=== PATIENT | male | born 1995 | race American Indian/Alaskan Native ===

== ENCOUNTER 2017-07-01 10:04 | Emergency (ER) | payer OTHER ==
[2017-07-01 10:54] LABS: Basophils % (Auto) 1.3 % (0.0-1.8); Hematocrit 45.2 % (35.5-45.6); Hemoglobin 14.6 gm/dl (11.8-15.2); Mean Corpuscular HGB Conc 32 % (32-34); Mean Corpuscular Hemoglobin 31 pg (28-32); Mean Corpuscular Volume 94 fl (84-94); Platelet Count 213 K/mm3 (140-440); Red Blood Count 4.79 M/mm3 (3.65-5.03); Red Cell Distribution Width 12.9 % (13.2-15.2); White Blood Count 5.3 K/mm3 (4.5-11.0)
[2017-07-01 11:13] LABS: Alanine Aminotransferase 10 units/L (7-56); Albumin 4.6 g/dL (3.9-5); Alkaline Phosphatase 66 units/L (35-129); Anion Gap 13 mmol/L; BUN/Creatinine Ratio 21.25; Blood Urea Nitrogen 17 mg/dL (9-20); Calcium 9.2 mg/dL (8.4-10.2); Carbon Dioxide 30 mmol/L (22-30); Chloride 101.7 mmol/L (98-107); Glucose 95 mg/dL (75-100); Potassium 3.6 mmol/L (3.6-5.0); Sodium 141 mmol/L (137-145); Total Protein 6.9 g/dL (6.3-8.2)
[2017-07-01 12:35] LABS: Bacteria,Urine 1+ /HPF (Negative); Bilirubin,Urine NEG (Negative); Blood,Urine NEG (Negative); Ketones,Urine NEG (Negative); Leukocyte Esterase,Urine NEG (Negative); Mucus,Urine 2+ /HPF; Nitrite,Urine NEG (Negative); Protein,Urine <15 mg/dL mg/dL (Negative); Urobilinogen,Urine < 2.0 mg/dL (<2.0)
[2017-07-01 16:15] VITALS: BP 127/63
[2017-07-01] MEDS ORDERED: MOTRIN PO ONE (16:35)
[2017-07-01] MEDS ORDERED: TYLENOL PO ONE (16:35)
--- NOTE | 2017-07-01 16:47 | Emergency Department Report ---
ED General Adult HPI - General Chief complaint: Syncope Stated complaint: FAINTED PAIN IN LEFT HIP AND LEG Time Seen by Provider: 07/01/17 16:24 Source: patient Mode of arrival: Ambulatory Limitations: No Limitations - History of Present Illness Initial comments: He is a 22-year-old male no significant past medical history who presents with status post syncope. Patient was outside last night and after working from his job he got up and he felt lightheaded. He felt down on the left side of his body. He did not have any loss of consciousness. He is just complaining of left hip pain which is a 4 out of 10. It is an achy type of pain putting pressure on it makes it worse and rest makes it better. Pt states that he had no loss of consciousness. Patient also hit his head. Severity scale (0 -10): 2 - Related Data Previous Rx's Medication Instructions Recorded Last Taken Type Ibuprofen [Motrin 800 MG tab] 800 mg PO Q8HR PRN #30 tablet 12/31/15 Unknown Rx Acetaminophen [Acetaminophen TAB] 1,000 mg PO ONCE PRN #60 tablet 07/01/17 Unknown Rx Ibuprofen [Motrin 400 MG tab] 400 mg PO ONCE PRN #30 tablet 07/01/17 Unknown Rx Allergies Allergy/AdvReac Type Severity Reaction Status Date / Time Penicillins AdvReac Unknown Verified 12/31/15 00:29 ED Review of Systems ROS: Stated complaint: FAINTED PAIN IN LEFT HIP AND LEG Other details as noted in HPI Constitutional: denies: chills, fever Eyes: denies: eye pain, eye discharge, vision change ENT: denies: ear pain, throat pain Respiratory: denies: cough, shortness of breath, wheezing Cardiovascular: syncope. denies: chest pain, palpitations Endocrine: no symptoms reported Gastrointestinal: denies: abdominal pain, nausea, diarrhea Genitourinary: denies: urgency, dysuria Musculoskeletal: myalgia. denies: back pain, joint swelling, arthralgia Skin: denies: rash, lesions Neurological: denies: headache, weakness, paresthesias Psychiatric: denies: anxiety, depression Hematological/Lymphatic: denies: easy bleeding, easy bruising ED Past Medical Hx - Past Medical History Previous Medical History?: No - Surgical History Past Surgical History?: No - Social History Smoking Status: Current Every Day Smoker Substance Use Type: Marijuana - Medications Home Medications: Home Medications Medication Instructions Recorded Confirmed Last Taken Type Ibuprofen [Motrin 800 MG tab] 800 mg PO Q8HR PRN #30 tablet 12/31/15 Unknown Rx Acetaminophen [Acetaminophen TAB] 1,000 mg PO ONCE PRN #60 tablet 07/01/17 Unknown Rx Ibuprofen [Motrin 400 MG tab] 400 mg PO ONCE PRN #30 tablet 07/01/17 Unknown Rx ED Physical Exam - General Limitations: No Limitations General appearance: alert, in no apparent distress - Head Head exam: Present: normocephalic, other (left facial abrasion ) - Eye Eye exam: Present: normal appearance - ENT ENT exam: Present: mucous membranes moist - Neck Neck exam: Present: normal inspection - Respiratory Respiratory exam: Present: normal lung sounds bilaterally. Absent: respiratory distress - Cardiovascular Cardiovascular Exam: Present: regular rate, normal rhythm. Absent: systolic murmur, diastolic murmur, rubs, gallop - GI/Abdominal GI/Abdominal exam: Present: soft, normal bowel sounds - Rectal Rectal exam: Present: deferred - Extremities Exam Extremities exam: Present: other (left hip tenderness good cap refill ) - Back Exam Back exam: Present: normal inspection - Neurological Exam Neurological exam: Present: alert, oriented X3 - Psychiatric Psychiatric exam: Present: normal affect, normal mood - Skin Skin exam: Present: warm, dry, intact, normal color. Absent: rash ED Course Vital Signs 07/01/17 07/01/17 07/01/17 10:09 12:18 15:30 Temperature 98.3 F Pulse Rate 78 57 L Respiratory 18 16 16 Rate Blood Pressure 125/71 Blood Pressure 127/63 [Left] O2 Sat by Pulse 100 98 Oximetry ED Medical Decision Making - Lab Data Result diagrams: 07/01/17 10:39 07/01/17 10:39 Lab Results 07/01/17 07/01/17 07/01/17 Range/Units 10:39 10:39 12:11 WBC 5.3 (4.5-11.0) K/mm3 RBC 4.79 (3.65-5.03) M/mm3 Hgb 14.6 (11.8-15.2) gm/dl Hct 45.2 (35.5-45.6) % MCV 94 (84-94) fl MCH 31 (28-32) pg MCHC 32 (32-34) % RDW 12.9 L (13.2-15.2) % Plt Count 213 (140-440) K/mm3 Lymph % (Auto) 31.0 (13.4-35.0) % Davis % (Auto) 5.0 (0.0-7.3) % Eos % (Auto) 1.0 (0.0-4.3) % Baso % (Auto) 1.3 (0.0-1.8) % Lymph # 1.6 (1.2-5.4) K/mm3 Davis # 0.3 (0.0-0.8) K/mm3 Eos # 0.1 (0.0-0.4) K/mm3 Baso # 0.1 (0.0-0.1) K/mm3 Seg Neutrophils % 61.7 (40.0-70.0) % Seg Neutrophils # 3.3 (1.8-7.7) K/mm3 Sodium 141 (137-145) mmol/L Potassium 3.6 (3.6-5.0) mmol/L Chloride 101.7 (98-107) mmol/L Carbon Dioxide 30 (22-30) mmol/L Anion Gap 13 mmol/L BUN 17 (9-20) mg/dL Creatinine 0.8 (0.8-1.5) mg/dL Estimated GFR > 60 ml/min BUN/Creatinine Ratio 21.25 % Glucose 95 (75-100) mg/dL Calcium 9.2 (8.4-10.2) mg/dL Total Bilirubin 1.60 H (0.1-1.2) mg/dL AST 14 (5-40) units/L ALT 10 (7-56) units/L Alkaline Phosphatase 66 (35-129) units/L Total Protein 6.9 (6.3-8.2) g/dL Albumin 4.6 (3.9-5) g/dL Albumin/Globulin Ratio 2.0 % Urine Color Yellow (Yellow) Urine Turbidity Clear (Clear) Urine pH 6.0 (5.0-7.0) Ur Specific [place] 1.029 (1.003-1.030) Urine Protein <15 mg/dl (Negative) mg/dL Urine Glucose (UA) 150 (Negative) mg/dL Urine Ketones Neg (Negative) mg/dL Urine Blood Neg (Negative) Urine Nitrite Neg (Negative) Urine Bilirubin Neg (Negative) Urine Urobilinogen < 2.0 (<2.0) mg/dL Ur Leukocyte Esterase Neg (Negative) Urine WBC (Auto) 7.0 H (0.0-6.0) /HPF Urine RBC (Auto) 3.0 (0.0-6.0) /HPF U Epithel Cells (Auto) < 1.0 (0-13.0) /HPF Urine Bacteria (Auto) 1+ (Negative) /HPF Calcium Oxalate Crystal 2+ Urine Mucus 2+ /HPF - EKG Data -: EKG Interpreted by Me - EKG Data 07/01/17 20:[address] segment elevation normal sinus rhythm normal axis no T- wave inversions may be benign early repole - Medical Decision Making Chief medical diagnosis: Syncope secondary to hypoglycemia Differential medical diagnosis: Arrhythmia, electrolyte abnormality I will get CBC, CMP, EKG and oral pain medication Patient is feeling better most likely just has a hip abrasion. Discussed outpatient to follow up with his primary care provider. N gave patient return precautions if he has any more syncopal episodes. Additional verbal discharge instructions were given Critical care attestation.: If time is entered above; I have spent that time in minutes in the direct care of this critically ill patient, excluding procedure time. ED Disposition Clinical Impression: Left hip pain, Skin abrasion Syncope Qualifiers: Syncope type: vasovagal syncope Qualified Code(s): R55 - Syncope and collapse Disposition: DC-01 TO HOME OR SELFCARE Is pt being admited?: No Does the pt Need Aspirin: No Condition: Stable Instructions: Syncope (ED), Arthralgia (ED) Prescriptions: Acetaminophen [Acetaminophen TAB] 1,000 mg PO ONCE PRN #60 tablet PRN Reason: Pain Ibuprofen [Motrin 400 MG tab] 400 mg PO ONCE PRN #30 tablet PRN Reason: Pain Referrals: PRIMARY CARE,MD [Primary Care Provider] - 3-5 Days Forms: Accompanied Note, Work/School Release Form(ED)
== END 2017-07-01 16:45 | disposition home or self-care (01) ==
LOC: ED 10:04
DX: S70.212A Abrasion, left hip, initial encounter (principal); F17.210 Nicotine dependence, cigarettes, uncomplicated; F12.10 Cannabis abuse, uncomplicated; Z88.0 Allergy status to penicillin; W18.30XA Fall on same level, unspecified, initial encounter; Y93.89 Activity, other specified; Y92.89 Other specified places as the place of occurrence of the external cause; Y99.8 Other external cause status
CPT/HCPCS: 36415; 80053; 81001; 85025; 93005; 93010; 99284

== ENCOUNTER 2017-07-28 14:16 | Emergency (ER) | payer OTHER ==
[2017-07-28 14:59] VITALS: BP 133/79
[2017-07-28] MEDS ORDERED: TYLENOL PO ONE (17:44)
[2017-07-28] MEDS ORDERED: TORADOL IM ONE (17:44)
--- NOTE | 2017-07-28 17:44 | Emergency Department Report ---
ED Back Pain/Injury HPI - General Chief Complaint: Back Pain/Injury Stated Complaint: LOWER BACK PAIN Time Seen by Provider: 07/28/17 17:42 Source: patient Limitations: No Limitations - History of Present Illness Initial Comments: This is a 22-year-old male, the patient is previously unknown to this provider patient denies chronic medical conditions, patient presents to the ER with a complaint of left paralumbar back pain, after doing heavy lifting. The pain started yesterday. It is achy, increases with palpation, range of motion, and decreases with rest. It does not radiate anywhere, there is no abdominal pain, there is no saddle anesthesia, there is no bladder or bowel retention/ incontinence. MD Complaint: back pain, back injury -: Gradual Similar Symptoms Previously: No Place: work Radiation: none Severity: mild Quality: aching Consistency: intermittent Worsens With: movement Context: turning/twisting, bending Associated Symptoms: denies other symptoms - Related Data Previous Rx's Medication Instructions Recorded Last Taken Type Ibuprofen [Motrin 800 MG tab] 800 mg PO Q8HR PRN #30 tablet 12/31/15 Unknown Rx Acetaminophen [Acetaminophen TAB] 1,000 mg PO ONCE PRN #60 tablet 07/01/17 Unknown Rx Ibuprofen [Motrin 400 MG tab] 400 mg PO ONCE PRN #30 tablet 07/01/17 Unknown Rx Acetaminophen [Tylenol Arthritis] 650 mg PO Q6HR PRN #30 tablet.er 07/28/17 Unknown Rx Ibuprofen [Motrin] 600 mg PO Q8H PRN #30 tablet 07/28/17 Unknown Rx Methocarbamol [Robaxin TAB] 1,500 mg PO TID PRN #30 tab 07/28/17 Unknown Rx Allergies Allergy/AdvReac Type Severity Reaction Status Date / Time Penicillins AdvReac Unknown Verified 07/28/17 14:54 ED Review of Systems ROS: Stated complaint: LOWER BACK PAIN Other details as noted in HPI Constitutional: denies: fever Eyes: denies: vision change ENT: denies: throat pain Respiratory: denies: cough Cardiovascular: denies: chest pain Gastrointestinal: denies: abdominal pain Genitourinary: denies: dysuria Musculoskeletal: back pain Skin: denies: lesions Neurological: denies: weakness Psychiatric: denies: anxiety ED Past Medical Hx - Past Medical History Previous Medical History?: No - Surgical History Past Surgical History?: No - Social History Smoking Status: Never Smoker Substance Use Type: Marijuana - Medications Home Medications: Home Medications Medication Instructions Recorded Confirmed Last Taken Type Ibuprofen [Motrin 800 MG tab] 800 mg PO Q8HR PRN #30 tablet 12/31/15 Unknown Rx Acetaminophen [Acetaminophen TAB] 1,000 mg PO ONCE PRN #60 tablet 07/01/17 Unknown Rx Ibuprofen [Motrin 400 MG tab] 400 mg PO ONCE PRN #30 tablet 07/01/17 Unknown Rx Acetaminophen [Tylenol Arthritis] 650 mg PO Q6HR PRN #30 tablet.er 07/28/17 Unknown Rx Ibuprofen [Motrin] 600 mg PO Q8H PRN #30 tablet 07/28/17 Unknown Rx Methocarbamol [Robaxin TAB] 1,500 mg PO TID PRN #30 tab 07/28/17 Unknown Rx ED Physical Exam - General Limitations: No Limitations General appearance: alert, in no apparent distress - Head Head exam: Present: atraumatic, normocephalic - Eye Eye exam: Present: normal appearance, EOMI. Absent: nystagmus - ENT ENT exam: Present: normal exam, normal orophraynx, mucous membranes moist, normal external ear exam - Neck Neck exam: Present: normal inspection, full ROM. Absent: tenderness, meningismus - Respiratory Respiratory exam: Present: normal lung sounds bilaterally. Absent: respiratory distress, wheezes, rales, rhonchi, stridor, chest wall tenderness - Cardiovascular Cardiovascular Exam: Present: regular rate, normal rhythm, normal heart sounds. Absent: systolic murmur, diastolic murmur, rubs, gallop - GI/Abdominal GI/Abdominal exam: Present: soft, normal bowel sounds. Absent: distended, tenderness, guarding, rebound, rigid, pulsatile mass - Rectal Rectal exam: Present: deferred - Extremities Exam Extremities exam: Present: normal inspection, full ROM. Absent: calf tenderness - Back Exam Back exam: Present: normal inspection, paraspinal tenderness. Absent: vertebral tenderness - Neurological Exam Neurological exam: Present: alert, oriented X3, normal gait, other (Extraocular movements intact. Tongue midline. No facial droop. Facial sensation intact to light touch in the V1, V2, V3 distribution bilaterally. 5 and 5 strength in 4 extremities.. Sensation is intact to light touch in 4 extremities.). Absent : motor sensory deficit - Psychiatric Psychiatric exam: Present: normal affect, normal mood - Skin Skin exam: Present: warm, dry, intact, normal color. Absent: rash ED Course Vital Signs 07/28/17 07/28/17 14:55 17:52 Temperature 98.7 F Pulse Rate 98 H Respiratory 18 18 Rate Blood Pressure 133/79 O2 Sat by Pulse 99 Oximetry - Reevaluation(s) Reevaluation #1: 07/28/17 17:48 There is no bladder or bowel retention/incontinence. ED Medical Decision Making - Lab Data Vital Signs 07/28/17 14:55 Temperature 98.7 F Pulse Rate 98 H Respiratory 18 Rate Blood Pressure 133/79 O2 Sat by Pulse 99 Oximetry - Medical Decision Making Differential diagnosis: Mechanical back pain, musculoskeletal back pain Assessment and plan: 22-year-old male with reproducible left-sided paraspinal muscular back pain after heavy lifting rebar at work. Patient neurovascularly intact, no pulsatile abdominal mass, walks with a steady gait, appropriate strength and sensation in the lower extremities, not consistent with epidural compression syndrome, suitable to be managed as an outpatient, return precautions are reviewed. Critical care attestation.: If time is entered above; I have spent that time in minutes in the direct care of this critically ill patient, excluding procedure time. ED Disposition Clinical Impression: Back pain Disposition: DC-01 TO HOME OR SELFCARE Is pt being admited?: No Does the pt Need Aspirin: No Condition: Stable Instructions: Acute Low Back Pain (ED) Additional Instructions: Pain typically gets worse before it gets better after heavy lifting. Rest and avoid heavy lifting, and take the pain medication as directed. Avoid strenuous physical activity, follow-up with primary care doctor within the next 7-10 days. Return to the ER right away with new pain, worsened pain, migration of pain, fevers, chills, lethargy, irritability, projectile vomiting, change in mental status, extremity weakness/numbness, bladder or bowel retention/ incontinence. Prescriptions: Acetaminophen [Tylenol Arthritis] 650 mg PO Q6HR PRN #30 tablet.er PRN Reason: Pain Ibuprofen [Motrin] 600 mg PO Q8H PRN #30 tablet PRN Reason: Pain Methocarbamol [Robaxin TAB] 1,500 mg PO TID PRN #30 tab PRN Reason: Pain Referrals: PRIMARY CARE, [Primary Care Provider] - 3-[address] [facility] [Provider Group] - 3-5 Days Forms: Work/School Release Form(ED)
== END 2017-07-28 18:00 | disposition home or self-care (01) ==
LOC: ED 14:16
DX: M54.5 Low back pain (principal); F12.10 Cannabis abuse, uncomplicated; Z88.0 Allergy status to penicillin
CPT/HCPCS: 96372; 99282; J1885

== ENCOUNTER 2018-05-24 08:13 | Emergency (ER) | payer OTHER ==
[2018-05-24 08:31] VITALS: BP 132/65
[2018-05-24] MEDS ORDERED: ZOFRAN ODT PO ONE (09:15)
[2018-05-24] MEDS ORDERED: IMODIUM PO ONE (09:15)
--- NOTE | 2018-05-24 09:30 | Emergency Department Report ---
Blank Doc - Documentation Documentation: 22 yo with no past medical or surgical history presents to the hospital complaining of nausea, vomiting, and diarrhea since yesterday. Patient states this is like a knot in his stomach is moderate in intensity without exiting or alleviating factors. Patient denies hematemesis, hematochezia, melena, fever, or international travel. He states he has a friend with similar symptoms. No significant abdominal tenderness on exam By mouth Zofran and Imodium ordered Labs ordered Mid-level to follow
[2018-05-24 09:51] LABS: Basophils % (Auto) 0.4 % (0.0-1.8); Eosinophils # (Auto) 0.1 K/mm3 (0.0-0.4); Eosinophils % (Auto) 1.9 % (0.0-4.3); Hematocrit 45.9 % (35.5-45.6); Hemoglobin 15.4 gm/dl (11.8-15.2); Lymphocytes # (Auto) 1.7 K/mm3 (1.2-5.4); Lymphocytes % (Auto) 33.1 % (13.4-35.0); Mean Corpuscular HGB Conc 34 % (32-34); Mean Corpuscular Hemoglobin 32 pg (28-32); Mean Corpuscular Volume 94 fl (84-94); Monocytes # (Auto) 0.4 K/mm3 (0.0-0.8); Monocytes % (Auto) 8.1 % (0.0-7.3); Platelet Count 201 K/mm3 (140-440); Red Blood Count 4.87 M/mm3 (3.65-5.03); Red Cell Distribution Width 12.9 % (13.2-15.2)
[2018-05-24 10:42] LABS: Alanine Aminotransferase 8 units/L (7-56); Albumin 4.1 g/dL (3.9-5); BUN/Creatinine Ratio 16; Blood Urea Nitrogen 13 mg/dL (9-20); Calcium 9.3 mg/dL (8.4-10.2); Hemolysis Index 11
[2018-05-24 10:49] LABS: Lipase 19 units/L (13-60)
[2018-05-24] MEDS ORDERED: LASIX PO ONE (12:05)
--- NOTE | 2018-05-24 12:17 | Emergency Department Report ---
Vomiting/Diarrhea - HPI Chief Complaint: Nausea/Vomiting/Diarrhea Stated Complaint: VOMITING Time Seen by Provider: 05/24/18 09:11 Duration: 2 Days Severity: moderate Nausea/Vomiting Severity: Moderate Diarrhea Severity: Moderate Pain Location: Generalized Pain Severity: Mild Symptoms: Yes Watery Diarrhea, Yes Able to Tolerate Fluids, Yes Contacts w/ Similar Symptoms, No Bloody diarrhea, No Fever, No Recent Unusual Foods, No Recent Untreated Water, No Recent use of Antibiotics, No Family w/ Similar Symptoms, No Rash, No Hematuria, No Recent URI Symptoms Other History: This is a 22 year old male that presents to the emergency department with nause, vomiting, and diarrhea. No past medical or surgical history. Patient states symptoms started yesterday. He felt like a knot was in his stomach. Pain was sharp and 4 out of 10 on pain scale. He reports eating [employer] tuesday night with a friend who have similar symptoms. Patient states he had one episode of diarrhea while here in the emergency room. The nausea and vomiting has resolved. Patient denies hematemesis, hematochezia, melena, fever, or international travel. ED Review of Systems ROS: Stated complaint: VOMITING Other details as noted in HPI Constitutional: denies: chills, fever Respiratory: denies: cough, shortness of breath, wheezing Cardiovascular: denies: chest pain, palpitations Gastrointestinal: abdominal pain, nausea, vomiting. denies: diarrhea Neurological: denies: headache, weakness, paresthesias Psychiatric: denies: anxiety, depression ED Past Medical Hx - Past Medical History Previous Medical History?: No - Surgical History Past Surgical History?: No - Social History Smoking Status: Current Every Day Smoker Substance Use Type: Marijuana - Medications Home Medications: Home Medications Medication Instructions Recorded Confirmed Last Taken Type Ibuprofen [Motrin 800 MG tab] 800 mg PO Q8HR PRN #30 tablet 12/31/15 Unknown Rx Acetaminophen [Acetaminophen TAB] 1,000 mg PO ONCE PRN #60 tablet 07/01/17 Unknown Rx Ibuprofen [Motrin 400 MG tab] 400 mg PO ONCE PRN #30 tablet 07/01/17 Unknown Rx Acetaminophen [Tylenol Arthritis] 650 mg PO Q6HR PRN #30 tablet.er 07/28/17 Unknown Rx Ibuprofen [Motrin] 600 mg PO Q8H PRN #30 tablet 07/28/17 Unknown Rx Methocarbamol [Robaxin TAB] 1,500 mg PO TID PRN #30 tab 07/28/17 Unknown Rx Loperamide HCl [Imodium A-D] 2 mg PO DAILY PRN #10 capsule 05/24/18 Unknown Rx Ondansetron [Zofran Odt] 4 mg PO TID PRN #9 tab.rapdis 05/24/18 Unknown Rx Vomiting Diarrhea Exam - Exam General: Vital signs noted. No distress. Alert and acting appropriately. HEENT: Yes Moist Mucous Membranes, No Pharyngeal Erythema, No Pharyngeal Exudates, No Rhinorrhea, No Conjuctival Injection, No Frontal Tenderness, No Maxillary Tenderness Neck: No Adenopathy, No Rigidity Lungs: Yes Clear Lung Sounds, Yes Good Air Exchange, No Wheezes, No Stridor, No Cough, No Nasal Flaring, No Retractions, No Use of Accessory Muscles Heart exam: Regular: Yes, Murmur: No, Tachycardia: No Abdomen: Tenderness: No, Peritoneal Signs: No, Distention: No, Hyperactive Bowel sounds: No Skin exam: Rash: No, Edema: No, Normal turgor: Yes Neurologic: Alert and oriented, no deficits. Musculoskeletal: Unremarkable. ED Course Vital Signs 05/24/18 08:28 Temperature 98.7 F Pulse Rate 57 L Respiratory 16 Rate Blood Pressure 132/65 O2 Sat by Pulse 100 Oximetry ED Medical Decision Making - Lab Data Result diagrams: 05/24/18 09:39 05/24/18 09:39 - Medical Decision Making This patient was seen by myself and Dr. Sharma in fast track. Vitals stable. Given Zofran and Imodium while in ER. Labs were obtained, potassium slightly elevated. All other labs unremarkable. Patient given potassium 20 mEq by mouth while in ER and instructed to increase water intake. Plan to start Imodium and zofran for gastroenteritis. Discussed plan with patient and agreed to plan. No further questions noted by the patient. Discharged home in stable condition. Follow up with PCP in 2-3 days to repeat chemistry for evaluation of electrolytes. Critical care attestation.: If time is entered above; I have spent that time in minutes in the direct care of this critically ill patient, excluding procedure time. ED Disposition Clinical Impression: Nausea and vomiting in adult, Gastroenteritis, Acute hyperkalemia Disposition: TO HOME OR SELFCARE Is pt being admited?: No Does the pt Need Aspirin: No Condition: Stable Instructions: Gastroenteritis (ED), Acute Nausea and Vomiting (ED) Additional Instructions: Frequent hand washing is important to reduce spread. Prompt disinfection of contaminated surfaces with household chlorine bleach- based wind energy project manager and washing of soiled clothing and bedding should be advised. If food or water is thought to be contaminated, it should be avoided. Increase fluid intake. Drinks high in sugars such as carbonated soft drinks, fruit juice, and highly sugared liquids should be avoided. Follow-up with the primary care provider for repeat chemistry labs in 2-3 days to evaluate electrolytes. Prescriptions: Loperamide HCl [Imodium A-D] 2 mg PO DAILY PRN #10 capsule PRN Reason: Diarrhea Ondansetron [Zofran Odt] 4 mg PO TID PRN #9 tab.rapdis PRN Reason: Nausea And Vomiting Referrals: [facility] [Outside] - 3-5 Days [facility] [Outside] - 3-5 Days [facility] [Outside] - 3-5 Days Forms: Work/School Release Form(ED) Time of Disposition: 12:27 Print Language: WELSH
== END 2018-05-24 12:43 | disposition home or self-care (01) ==
LOC: ED 08:13
DX: K52.9 Noninfective gastroenteritis and colitis, unspecified (principal); E87.5 Hyperkalemia; F17.200 Nicotine dependence, unspecified, uncomplicated; F12.10 Cannabis abuse, uncomplicated
CPT/HCPCS: 36415; 80053; 83690; 85025; 99283; Q0162